=== PATIENT | female | born 1990 | race African-American/Black ===

== ENCOUNTER 2017-11-03 15:09 | Emergency (ER) | payer BC, OTHER ==
[2017-11-03 16:07] LABS: Urine Blood 2+ (NEG); Urine Glucose NEGATIVE (NEG); Urine Protein 1+ (NEG); Urine pH 8.5 (5.0-7.0)
[2017-11-03] MEDS ORDERED: NA CHLORIDE 0.9% 1,000 ML ONE (16:10)
[2017-11-03 16:23] LABS: Urine Bacteria <20 /HPF (<20); Urine Culture Reflex Order REFLEXED
[2017-11-03 16:39] LABS: Absolute Lymphocytes (CBC) 2.1 K/uL (0.7-4.9); Absolute Monocytes 0.5 K/uL (0.1-1.3); Absolute Neutrophil 2.1 K/uL (1.8-8.0); Basophils % 0.9 % (0-1.3); Eosinophils % 3.7 % (0-4.4); Hematocrit 28.6 % (36.0-45.0); Lymphocytes % 42.6 % (15.3-44.8); MCH 23.5 pg (27.0-35.0); MCV 72.1 fL (80-100); MPV 6.7 fL (7.6-11.3); Monocytes % 9.9 % (3.3-12.3); RBC Red Blood Cell Count 3.96 M/uL (3.86-4.86)
[2017-11-03 16:51] LABS: Glucose Level 87 mg/dL (65-120)
[2017-11-03 16:52] LABS: BUN Blood Urea Nitrogen 11 mg/dL (6-20)
[2017-11-03 17:04] LABS: Bicarbonate 26 mEq/L (21-31); HCG, Quantitative 34.5 mIU/mL (<5); Potassium 3.5 mEq/L (3.6-5.0); Sodium Level 135 mEq/L (135-145)
--- NOTE | 2017-11-03 17:32 | ER ---
Nurse's Notes [facility] Name: Colton Oh Age: 26 yrs Sex: Female : 1990 Arrival Date: 11/03/2017 Time: 15:15 Bed 6 Private MD: None, None Diagnosis: Less than 8 weeks gestation of Presentation: 11/03 15:35 Presenting complaint: Patient states: I took a home test and it showed I was ch . I started bleeding today like my period. LMP was 09/26. no pain. Transition of care: patient was not received from another setting of care. Onset of symptoms was November 03, 2017. Initial Sepsis Screen: Does the patient meet any 2 criteria? No. Patient's initial sepsis screen is negative. Does the patient have a suspected source of infection? No. Patient's initial sepsis screen is negative. Care prior to arrival: None. 15:35 Method Of Arrival: Ambulatory 15:35 Acuity: KRISTOPHER 3 ch Triage Assessment: 15:36 General: Appears in no apparent distress. comfortable, Behavior is calm, cooperative, ch appropriate for age. Pain: Denies pain. Neuro: Level of Consciousness is awake, alert, obeys commands. : Reports vaginal bleeding that is bright red, moderate flow. 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 - Social history:: Smoking status: Patient/guardian denies using tobacco, Patient/guardian denies using alcohol, street drugs. Screenin:10 Abuse screen: Denies threats or abuse. Denies injuries from another. Nutritional sv screening: No deficits noted. Tuberculosis screening: No symptoms or risk factors identified. Fall Risk None identified. Assessment: 16:10 General: Appears in no apparent distress. comfortable, well developed, Behavior is sv calm, cooperative, appropriate for age. Pain: Denies pain. Neuro: Level of Consciousness is awake, alert, obeys commands, Oriented to person, place, time, situation, Moves all extremities. Full function Gait is steady. Cardiovascular: Patient's skin is warm and dry. Respiratory: Respiratory effort is even, unlabored, Respiratory pattern is regular, symmetrical. : Reports vaginal bleeding that was spotty earlier today. Denies vaginal bleeding. Derm: Skin is normal. Vital Signs: 15:36 BP 110 / 76; Pulse 73; Resp 15; Temp 98.3; Pulse Ox 100% on R/A; Weight 82.55 kg; Height 5 ft. 2 in. (157.48 cm); Pain 0/10; 15:36 Body Mass Index 33.29 (82.55 kg, 157.48 cm) ED Course: 15:15 Patient arrived in ED. mr 15:15 None, None is Private Physician. mr 15:35 Triage completed. ch 15:36 Dania Lawson FNP-C is [facility]. kb 15:36 Arm band placed on left wrist. Patient placed in waiting room. ch 15:37 Jessica Del Valle MD is Attending Physician. kb 15:49 Erica Franks, RN is Primary Nurse. sv 16:10 Patient has correct armband on for positive identification. Bed in low position. Call sv light in reach. Door closed. Warm blanket given. Head of bed elevated. 16:20 Initial lab(s) drawn, by me, sent to lab. Inserted saline lock: 20 gauge in left sv antecubital area, using aseptic technique. Blood collected. Flushed left antecubital with 5 ml normal saline. 16:40 Awaiting lab results. sv 17:16 Patient taken to ultrasound. via wheelchair. sv 17:30 Ultrasound completed. Patient tolerated well. cy 17:32 US Transvaginal Ob In Process Unspecified. EDMS Administered Medications: 16:25 Drug: NS 0.9% 1000 ml Route: IV; Rate: 1000 ml; Site: left antecubital; sv Outcome: 17:31 Discharge ordered by . kb 17:49 Patient left the ED. sv Signatures: Dispatcher [employer] EDMS Dania Lawson FNP-C FNP-Ckb Hammond, Christina RN SENTHIL Erica Franks, SENTHIL NDIAYE Opal Blanton mr CanJimmy
--- NOTE | 2017-11-03 17:33 | EDPHYS ---
Physician Documentation [facility] Name: Colton Oh Age: 26 yrs Sex: Female : 1990 Arrival Date: 11/03/2017 Time: 15:15 Bed 6 Private MD: None, None ED Physician Jessica Del Valle HPI: 11/03 17:09 This 26 yrs old Black Female presents to ER via Ambulatory with complaints of Vaginal kb Bleeding, + Preg <12wks. 17:09 The patient presents to the emergency department with vaginal bleeding, that is light, kb just with urination. course: care: none, Leakage of Fluid: none appreciated, Ultrasound: the patient has not had an ultrasound, Risk/complications: no obvious risks or complications are appreciated. Previous pregnancies: in previous pregnancies patient has had. Associated signs and symptoms: Pertinent positives: vaginal bleeding, Pertinent negatives: abdominal pain, chest pain, diarrhea, dysuria, fever, frequency, nausea, ruptured membranes, seizure, shortness of breath, vaginal discharge, vomiting. The patient has not experienced similar symptoms in the past. The patient has not recently seen a physician. Pt states she had a positive test on Thursday. Today noticed vaginal bleeding when she went to the bathroom. 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 - Social history:: Smoking status: Patient/guardian denies using tobacco, Patient/guardian denies using alcohol, street drugs. ROS: 17:09 Constitutional: Negative for fever, chills, and weight loss, Cardiovascular: Negative kb for chest pain, palpitations, and edema, Respiratory: Negative for shortness of breath, cough, wheezing, and pleuritic chest pain, Abdomen/GI: Negative for abdominal pain, nausea, vomiting, diarrhea, and constipation, Back: Negative for injury and pain, MS/Extremity: Negative for injury and deformity, Skin: Negative for injury, rash, and discoloration, Neuro: Negative for headache, weakness, numbness, tingling, and seizure. 17:09 : Positive for vaginal bleeding, Negative for injury or acute deformity, urinary symptoms, urinary frequency, small amounts, hematuria, pelvic pain, flank pain, burning with urination, difficulty urinating, bladder incontinence, foul smelling urine, vaginal discharge, vaginal itching, menstrual abnormality, missed period. Exam: 17:09 Constitutional: This is a well developed, well nourished patient who is awake, alert, kb and in no acute distress. Head/Face: Normocephalic, atraumatic. Chest/axilla: Normal chest wall appearance and motion. Nontender with no deformity. No lesions are appreciated. Cardiovascular: Regular rate and rhythm with a normal S1 and S2. No gallops, murmurs, or rubs. Normal PMI, no JVD. No pulse deficits. Respiratory: Lungs have equal breath sounds bilaterally, clear to auscultation and percussion. No rales, rhonchi or wheezes noted. No increased work of breathing, no retractions or nasal flaring. Abdomen/GI: Soft, non-tender, with normal bowel sounds. No distension or tympany. No guarding or rebound. No evidence of tenderness throughout. Skin: Warm, dry with normal turgor. Normal color with no rashes, no lesions, and no evidence of cellulitis. MS/ Extremity: Pulses equal, no cyanosis. Neurovascular intact. Full, normal range of motion. Neuro: Awake and alert, GCS 15, oriented to person, place, time, and situation. Cranial nerves II-XII grossly intact. Motor strength 5/5 in all extremities. Sensory grossly intact. Cerebellar exam normal. Normal gait. Vital Signs: 15:36 BP 110 / 76; Pulse 73; Resp 15; Temp 98.3; Pulse Ox 100% on R/A; Weight 82.55 kg; ch Height 5 ft. 2 in. (157.48 cm); Pain 0/10; 15:36 Body Mass Index 33.29 (82.55 kg, 157.48 cm) ch MDM: 15:51 Patient medically screened. kb 17:09 Data reviewed: vital signs, nurses notes. Data interpreted: Pulse oximetry: on room air kb is 100 %. Interpretation: normal. 17:11 Counseling: I had a detailed discussion with the patient and/or guardian regarding: the kb historical points, exam findings, and any diagnostic results supporting the discharge/admit diagnosis, lab results, radiology results, the need for outpatient follow up, an OB/Gyne specialist, to return to the emergency department if symptoms worsen or persist or if there are any questions or concerns that arise at home. 11/03 15:39 Order name: Urine Microscopic Only; Complete Time: 16:29 kb 11/03 16:02 Order name: Quantitative Hcg; Complete Time: 17:07 kb 11/03 16:02 Order name: Abo/rh Typing; Complete Time: 16:50 kb 11/03 16:02 Order name: Basic Metabolic Panel; Complete Time: 17:07 kb 11/03 16:02 Order name: CBC with Diff; Complete Time: 17:07 kb 11/03 16:03 Order name: Urine --Ancillary (enter results); Complete Time: 16:08 kb 11/03 15:39 Order name: Urine Test (obtain specimen); Complete Time: 16:10 kb 11/03 15:39 Order name: Urine Dipstick-Ancillary (obtain specimen); Complete Time: 16:10 kb 11/03 16:02 Order name: IV Saline Lock; Complete Time: 16:25 kb 11/03 16:02 Order name: Labs collected and sent; Complete Time: 16:25 kb 11/03 16:03 Order name: Urine Dipstick--Ancillary (enter results); Complete Time: 16:08 kb 11/03 16:23 Order name: Urine Culture EDOH 11/03 17:08 Order name: US Transvaginal Ob kb 11/03 16:02 Order name: NPO; Complete Time: 16:25 kb Administered Medications: 16:25 Drug: NS 0.9% 1000 ml Route: IV; Rate: 1000 ml; Site: left antecubital; sv Disposition: 11/03/17 17:31 Discharged to Home. Impression: Less than 8 weeks gestation of . - Condition is Stable. - Discharge Instructions: First Trimester of , [id number]. - Medication Reconciliation Form, Thank You Letter, Antibiotic Education, Prescription Opioid Use form. - Follow up: Emergency Department; When: As needed; Reason: Worsening of condition. Follow up: Private Physician; When: 2 - 3 days; Reason: Recheck today's complaints, Continuance of care, Re-evaluation by your physician. Addendum: 11/08/2017 19:51 Co-signature as Attending Physician, Jessica Del Valle MD. m a2 Signatures: Dispatcher [employer] Dania Benoit, LIZBETH LOWERY-Juany Dave, RN RN Erica Franks RN Jessica Andujar MD MD ma2 Corrections: (The following items were deleted from the chart) 11/03 17:49 17:31 11/03/2017 17:31 Discharged to Home. Impression: Less than 8 weeks gestation of sv . Condition is Stable. Forms are Medication Reconciliation Form, Thank You Letter, Antibiotic Education, Prescription Opioid Use. Follow up: Emergency Department; When: As needed; Reason: Worsening of condition. Follow up: Private Physician; When: 2 - 3 days; Reason: Recheck today's complaints, Continuance of care, Re-evaluation by your physician. kb
--- NOTE | 2017-11-03 17:54 | RAD REPORT ---
EXAM DESCRIPTION: US - Transvaginal OB - 11/03/2017 5:32 pm CLINICAL HISTORY: Vaginal bleeding. COMPARISON: None. FINDINGS: The uterus is normal in size, shape and echotexture. The uterus measures 8.3 x 6.2 x 5.5 c m. The endometrial stripe measures 14 mm, mildly thickened with no IUP seen. Both ovaries are normal in size, shape and echotexture. The right ovary measures 4.0 x 2.7 cm. The left ovary measures 3.9 x 2.9 cm. No ovarian or parovarian lesions. No adnexal masses. Normal Doppler blood flow was demonstrated to both ovaries. IMPRESSION: Mildly thickened endometrial stripe without evidence of IUP at this time.In the setting of an elevated HCG level, this would constitute a of unknown location. Interval follow-up u ltrasound in 7-10 days would be advised along with serial HCG levels.
[2017-11-03 18:00] VITALS: BP 110/76; TEMP 98.3; O2SAT 100
== END 2017-11-03 17:49 | disposition home or self-care (01) ==
LOC: ER 15:09
DX: O46.91 Antepartum hemorrhage, unspecified, first trimester (principal); Z3A.01 Less than 8 weeks gestation of pregnancy
CPT/HCPCS: 36415; 76817; 80048; 81003; 81015; 81025; 84702; 85025; 86900; 86901; 87086; 87088; 99284; J7030

== ENCOUNTER 2017-11-04 13:04 | Emergency (ER) | payer SELFPAY ==
--- NOTE | 2017-11-04 13:26 | ER ---
Nurse's Notes [facility] Name: Colton Oh Age: 26 yrs Sex: Female : 1990 Arrival Date: 11/04/2017 Time: 13:06 Bed Waiting Private MD: Diagnosis: Presentation: 11/04 13:25 Note Told registration she did not want to be seen here. aj ED Course: 13:06 Patient arrived in ED. mr 13:25 Isaac Hampton MD is Attending Physician. aj Administered Medications: No medications were administered Outcome: 13:25 Eloped from waiting room, before seeing physician Time discovered patient gone: November 04, aj 2018 at 13:25 13:25 Patient left the ED. aj Signatures: Krystin Vela, RN RN Opal Haas mr
== END 2017-11-04 13:25 | disposition left against medical advice (07) ==
LOC: ER 13:04
DX: Z02.9 Encounter for administrative examinations, unspecified (principal)